=== PATIENT | female | born 1965 | race Caucasian/White ===

== ENCOUNTER 2021-08-12 12:23 | Emergency (ER) | payer SELFPAY ==
[2021-08-12] MEDS ORDERED: Labetalol HCl 100 MG/20 ML VIAL ONE (16:50)
[2021-08-13 16:07] LABS: SARS-CoV-2 PCR by NAA Not Detected (NotDetected)
== END 2021-08-12 18:18 | disposition home or self-care (01) ==
LOC: CSHERS 12:23
DX: B34.9 Viral infection, unspecified (principal); I10 Essential (primary) hypertension; E03.9 Hypothyroidism, unspecified; Z20.822 Contact with and (suspected) exposure to COVID-19
CPT/HCPCS: 87081; 87430; 87804; 99283; U0003; U0005